=== PATIENT | female | born 1985 | race Caucasian/White ===

== ENCOUNTER 2018-10-12 22:47 | Emergency (ER) | payer SELFPAY ==
[~2018-10-12] VITALS: Ht 162.6 cm; Wt 80.7 kg
[~2018-10-12 22:47] MED LIST: IBUP-1542 PO
[2018-10-12 22:50] VITALS: Ht 162.6 cm; Wt 80.7 kg
--- NOTE | 2018-10-12 23:42 | ERD ---
ER Documentation Chief Complaint Chief Complaint CWP X2DAYS DUE TO COUGH; STATES HAS DRY COUGH X1WK WELL-ANXIOUS HPI 33-year-old female presents with complaint of intermittent chest wall pain for the past 3 days. States that she had this chest pain in the past as well and it resolved spontaneously. Denies any current chest pain. States the pain is worse with palpation. Admits to be going through a lot of stress currently due to an upcoming court case. States that the chest pain is made worse when she is thinking about her court case. Denies SOB, dyspnea, lower extremity swelling or pain, pain on exertion, diaphoresis, nausea, radiating of pain, recent travel or immobilization, hemoptysis, dsypnea, history of clotting disorder, syncope, fever, or cough. ROS All systems reviewed and are negative except as per history of present illness. Medications Home Meds Active Scripts Ibuprofen* (Motrin*) 600 Mg Tab, 600 MG PO Q6, #30 TAB Prov:OMID FISH 10/13/18 PMhx/Soc History of Surgery: Yes () Anesthesia Reaction: No Hx Neurological Disorder: No Hx Respiratory Disorders: No Hx Cardiac Disorders: No Hx Psychiatric Problems: Yes (Anxiety) Hx Miscellaneous Medical Probl: No Hx Alcohol Use: Yes (Ocassional) Hx Substance Use: No Hx Tobacco Use: No Smoking Status: Never smoker FmHx Family History: No diabetes, No coronary disease, No other Physical Exam Vitals Vital Signs Date Temp Pulse Resp B/P (MAP) Pulse Ox O2 O2 Flow FiO2 Time Delivery Rate 10/12/18 98.7 90 19 127/69 99 22:50 (88) Physical Exam Const: No acute distress Head: Atraumatic Eyes: Normal Conjunctiva ENT: Normal External Ears, Nose and Mouth. Neck: Full range of motion. No meningismus. Resp: Clear to auscultation bilaterally. Equal breath sounds. Mild tenderness palpation of the upper left anterior chest wall. There is no bony deformity noted. No masses noted. No erythema or edema noted. Cardio: Regular rate and rhythm, no murmurs Abd: Soft, non tender, non distended. Normal bowel sounds Skin: No petechiae or rashes Back: No midline or flank tenderness Ext: No cyanosis, or edema Neur: Awake and alert Psych: Normal Mood and Affect Result Diagram: 10/13/18 0001 10/13/18 0001 Results 24 hrs Laboratory Tests Test 10/13/18 00:01 10/13/18 00:19 White Blood Count 9.8 10^3/ul Red Blood Count 4.37 10^6/ul Hemoglobin 12.5 g/dl Hematocrit 38.9 % Mean Corpuscular Volume 89.0 fl Mean Corpuscular Hemoglobin 28.6 pg Mean Corpuscular Hemoglobin Concent 32.1 g/dl Red Cell Distribution Width 13.7 % Platelet Count 295 10^3/UL Mean Platelet Volume 10.1 fl Immature Granulocytes % 0.300 % Neutrophils % 51.4 % Lymphocytes % 39.1 % Monocytes % 5.5 % Eosinophils % 3.1 % Basophils % 0.6 % Nucleated Red Blood Cells % 0.0 /100WBC Immature Granulocytes # 0.030 10^3/ul Neutrophils # 5.0 10^3/ul Lymphocytes # 3.8 10^3/ul Monocytes # 0.5 10^3/ul Eosinophils # 0.3 10^3/ul Basophils # 0.1 10^3/ul Nucleated Red Blood Cells # 0.0 10^3/ul Sodium Level 141 mmol/L Potassium Level 4.3 mmol/L Chloride Level 106 mmol/L Carbon Dioxide Level 26 mmol/L Anion Gap 9 Blood Urea Nitrogen 15 mg/dl Creatinine 0.79 mg/dl Est Glomerular Filtrat Rate mL/min > 60 mL/min Glucose Level 91 mg/dl Calcium Level 9.6 mg/dl Total Bilirubin 0.5 mg/dl Direct Bilirubin 0.00 mg/dl Indirect Bilirubin 0.5 mg/dl Aspartate Amino Transf (AST/SGOT) 60 IU/L Alanine Aminotransferase (ALT/SGPT) 50 IU/L Alkaline Phosphatase 73 IU/L Troponin I < 0.012 ng/ml Total Protein 8.1 g/dl Albumin 4.8 g/dl Globulin 3.30 g/dl Albumin/Globulin Ratio 1.45 POC Beta HCG, Qualitative NEGATIVE Procedures/MDM EKG: Rate/Rhythm: Normal Sinus Rhythm QRS, ST, T-waves: No changes consistent w/ acute ischemia Impression: No evidence of ischemia or arrhythmia DIAGNOSTIC IMAGING REPORT Patient: MIL OLIVA : 1985 Age: 33 Sex: F MR #: [id number] DOS: 10/12/18 2332 Ordering MD: OMID FISH Location: [facility] Room/Bed: PROCEDURE: XR Chest. CLINICAL INDICATION: Chest pain. TECHNIQUE: Single frontal view of the chest. COMPARISON: None. FINDINGS: The cardiomediastinal silhouette is within normal limits. The lungs are clear. No signs of pleural fluid or pneumothorax are seen. The osseous structures and soft tissues are unremarkable. IMPRESSION: No evidence for active cardiopulmonary disease. RPTAT: [facility] Physician Ciara Date Time Electronically viewed and signed by Physician Ciara on 10/13/2018 00:25 RS/ CC: OMID FISH [id number] MDM: CXR, EKG, and labs were WNL. I have low suspicion for acute coronary syndrome, pulmonary embolism, aortic dissection, AAA, pneumothorax, esophageal rupture, pericarditis, myocarditis, or pneumonia based on EKG, imaging, labs, patient history and exam. Patient does not meet Wells criteria for D-Dimer testing. Patient most likely just has anxiety versus costochondritis as pain is made worse to palpation. I advised patient to seek counseling for her anxiety. At this time, patient is stable for discharge and outpatient management. I have instructed the patient to follow-up with his/her primary care physician in 1 day. I have discussed with the patient the possibility of needing to see a specialist for further workup and imaging studies if symptoms persist. I have instructed the patient to promptly return to the ER for any new or worsening symptoms including but not limited to increased pain, fever, nausea, vomiting, weakness or LOC. The patient and/or family expressed understanding of and agreement with this plan. All questions were answered. Home care instructions were provided. DISCLAIMER: Inadvertent spelling and grammatical errors are likely due to EHR/dictation s oftware use and do not reflect on the overall quality of patient care. Also, please note that the electronic time recorded on this note does not necessarily reflect the actual time of the patient encounter. Departure Diagnosis: Primary Impression: Chest wall pain Condition: Stable OMID FISH Oct 12, 2018 23:42
[2018-10-13 01:12] VITALS: BP 118/72; PULSE 88; RESP 17
== END 2018-10-13 01:12 | disposition home or self-care (01) ==
LOC: MERGE 22:47 → FTE 22:47
DX: R07.89 Other chest pain (principal)
CPT/HCPCS: 36415; 71045; 80053; 81025; 84484; 85025; 93005